=== PATIENT | female | born 1980 | race African-American/Black ===

== ENCOUNTER 2024-06-27 15:25 | Inpatient (IN) | payer OTHER ==
[2024-06-27 18:42] VITALS: BMI 29.0
[2024-06-27] MEDS ORDERED: NICOTINE POLACRILEX 2 MG GUM BUC PRN (20:57)
[2024-06-27] MEDS ORDERED: IBUPROFEN 400 MG TABLET (FP) PO PRN (20:57)
[2024-06-27] MEDS ORDERED: BENZONATATE 200 MG CAPSULE PO PRN (20:57)
[2024-06-27] MEDS ORDERED: ONDANSETRON *ODT* 4 MG TABLET SL PRN (20:57)
[2024-06-27] MEDS ORDERED: POLYETHYLENE GLYCOL (HEALTHYLAX) 3350 17 GM PACKET PO PRN (20:57)
[2024-06-27] MEDS ORDERED: DICYCLOMINE HCL 10 MG CAPSULE PO PRN (20:57)
[2024-06-27] MEDS ORDERED: guaiFENesin 600 MG TABLET.ER (FP) PO PRN (20:57)
[2024-06-27] MEDS ORDERED: MAG HYDROX/AL HYDROX/SIMETH 30 ML UNIT-DOSE CUP PO PRN (20:57)
[2024-06-27] MEDS ORDERED: hydrOXYzine PAMOATE 25 MG CAPSULE (FP) PO PRN (20:57)
[2024-06-27] MEDS ORDERED: LOPERAMIDE HCL 2 MG CAPSULE PO PRN (20:57)
[2024-06-27] MEDS ORDERED: BENZOCAINE/MENTHOL (CHLORASEPTIC ) LOZENGE MM PRN (20:57)
[2024-06-27] MEDS ORDERED: NALOXONE (NARCAN) HCL 4 MG/0.1 ML SPRAY NS PRN (20:57)
[2024-06-27] MEDS ORDERED: MAGNESIUM HYDROX 2400MG/30ML ORAL SUSPENSION 30 ML CUP PO PRN (20:57)
[2024-06-27] MEDS ORDERED: BISMUTH SUBSALICYLATE 524 MG/30 ML PO PRN (20:57)
[2024-06-27] MEDS ORDERED: MELATONIN 5 MG TABLETS ONE (23:44)
[2024-06-27] MEDS: THIAMINE 100 MG TABLET PO SCH (23:49)
[2024-06-27] MEDS: MELATONIN 5 MG TABLETS PO SCH (23:49)
[2024-06-28] MEDS: METHOCARBAMOL 500 MG TABLET PO PRN (05:27)
[2024-06-28] MEDS ORDERED: METHOCARBAMOL 500 MG TABLET ONE (05:27)
[2024-06-28] MEDS ORDERED: PRENATAL VITAMINS W/ FOLIC ACID TABLET (FP) PO ONE (09:23)
[2024-06-28] MEDS ORDERED: NICOTINE 21 MG/24 HOURS TOPICAL PATCH ONE (09:23)
[2024-06-28] MEDS: PRENATAL VITAMINS W/ FOLIC ACID TABLET (FP) PO SCH (09:25)
[2024-06-28] MEDS: NICOTINE 21 MG/24 HOURS TOPICAL PATCH TD SCH (09:25)
[2024-06-28] MEDS ORDERED: chlordiazePOXIDE HCL 25 MG CAPSULE PO PRN (14:07)
[2024-06-28 14:12] LABS: HEMATOCRIT 41.2 % (32.4-45.2); HEMOGLOBIN 13.4 GM/dL (10.7-15.3); MCH 29.7 pg (25.7-33.7); MCHC 32.6 g/dl (32.0-36.0); MEAN PLT VOLUME 9.7 fl (7.5-11.1); PLATELET COUNT 193 10^3/uL (134-434); RBC 4.52 M/mm3 (3.60-5.2); RDW 15.2 % (11.6-15.6); WHITE BLOOD COUNT 4.4 K/mm3 (4.0-10.0)
[2024-06-28] MEDS ORDERED: amLODIPine BESYLATE 5 MG TABLET (FP) ONE (14:21)
[2024-06-28] MEDS: amLODIPine BESYLATE 10 MG TABLET (FP) PO SCH (14:27)
[2024-06-28 14:33] LABS: CHLORIDE 108 mmol/L (98-107); POTASSIUM 3.7 mmol/L (3.5-5.1); SODIUM 140 mmol/L (136-145)
[2024-06-28 14:37] LABS: CALCIUM 8.7 mg/dL (8.5-10.1)
[2024-06-28] MEDS: NALTREXONE HCL 50 MG TABLET PO ONE (14:37)
[2024-06-28 14:38] LABS: ANION GAP 5 mmol/L (4-13); BLOOD UREA NITROGEN 11.6 mg/dL (7-18); CO2 28 mmol/L (21-32); GLUCOSE,RANDOM 119 mg/dL (74-106)
[2024-06-28 14:41] LABS: CREATININE 0.8 mg/dL (0.55-1.3); SGPT/ALT 20 U/L (13-61)
[2024-06-28 14:43] LABS: TOT PROT 5.9 g/dl (6.4-8.2)
[2024-06-28 14:45] LABS: ALK PHOS 103 U/L (45-117); SGOT/AST 17 U/L (15-37)
[2024-06-28 16:02] LABS: BILIRUBIN,TOTAL 0.8 mg/dL (0.2-1)
[2024-06-28] MEDS: chlordiazePOXIDE HCL 25 MG CAPSULE PO SCH (17:55)
[2024-06-28] MEDS: METOPROLOL TARTRATE 25 MG TABLET (FP) PO ONE (22:50)
[2024-06-29] MEDS: NALTREXONE HCL 50 MG TABLET PO SCH (10:14)
[2024-06-29] MEDS: LISINOPRIL 10 MG TABLET PO SCH (15:03)
[2024-06-29] MEDS ORDERED: ALBUTEROL SO4 HFA INHALER IH ONE (17:36)
[2024-06-29] MEDS: QUEtiapine FUMARATE 100 MG TABLET (FP) PO SCH (22:07)
[2024-06-30] MEDS: chlordiazePOXIDE HCL 25 MG CAPSULE PO SCH (05:38)
[2024-06-30] MEDS: IBUPROFEN 600 MG TABLET (FP) PO PRN (08:48)
[2024-06-30] MEDS: ACETAMINOPHEN 325 MG TABLET (FP) PO PRN (17:58)
[2024-07-01] MEDS ORDERED: chlordiazePOXIDE HCL 10 MG CAPSULE PO PRN
[2024-07-01] MEDS: chlordiazePOXIDE HCL 10 MG CAPSULE PO SCH (05:54)
[2024-07-02] MEDS: chlordiazePOXIDE HCL 10 MG CAPSULE PO SCH (05:43)
[2024-07-03] MEDS: chlordiazePOXIDE HCL 10 MG CAPSULE PO ONE (06:21)
[2024-07-03 09:20] VITALS: BP 154/90; PULSE 89; RESP 16; TEMP 97.5
[2024-07-03] MEDS: NALOXONE (NYS OPIOID OVERDOSE PROGRAM) 4 MG/0.1 ML SPRAY NS PRN (10:44)
== END 2024-07-03 10:57 | disposition home or self-care (01) | DRG 774 ==
LOC: YASAS 15:25 → Y6N 06-28 13:52
PROVIDERS: ADMIT Allergy & Immunology; ATTEND Surgery
PROC: HZ2ZZZZ Detoxification Services for Substance Abuse Treatment (ICD-10-PCS; principal; 2024-06-28)
DX: F10.230 Alcohol dependence with withdrawal, uncomplicated (principal); F14.20 Cocaine dependence, uncomplicated; F17.210 Nicotine dependence, cigarettes, uncomplicated; F10.280 Alcohol dependence with alcohol-induced anxiety disorder; F10.282 Alcohol dependence with alcohol-induced sleep disorder; F10.24 Alcohol dependence with alcohol-induced mood disorder; F31.9 Bipolar disorder, unspecified; F43.10 Post-traumatic stress disorder, unspecified; F41.9 Anxiety disorder, unspecified; F42.9 Obsessive-compulsive disorder, unspecified; I10 Essential (primary) hypertension; J45.909 Unspecified asthma, uncomplicated; M79.7 Fibromyalgia; M17.0 Bilateral primary osteoarthritis of knee; H91.91 Unspecified hearing loss, right ear; Z56.0 Unemployment, unspecified; Z59.00 Homelessness unspecified
CPT/HCPCS: 36415; 80053; 80305; 80307; 81025; 85027; 86780; 93005; 93010